=== PATIENT | male | born 1955 | race Caucasian/White ===

== ENCOUNTER → 2016-07-09 | Outpatient (REF) | payer OTHER | LOC: M LAB REF 16:01 | PROVIDERS: ATTEND Nurse Practitioner Family | DX: L08.9 Local infection of the skin and subcutaneous tissue, unspecified (principal) ==

== ENCOUNTER → 2022-01-29 | Outpatient (REF) | payer MEDICARE, MEDICAID | LOC: M LAB REF 14:46 | PROVIDERS: ATTEND Physician Assistant | DX: D23.112 Other benign neoplasm of skin of right lower eyelid, including canthus (principal) ==